=== PATIENT | male | born 1980 | race African-American/Black ===

== ENCOUNTER 2017-08-08 07:49 | Inpatient (IN) | payer OTHER ==
[~2017-08-08] VITALS: Ht 152.4 cm; Wt 92.0 kg
--- NOTE | ~2017-08-08 | D ---
[facility] [place] [address] DISCHARGE SUMMARY Name: HALIMAKELSY W Room #: 204-P [facility] IN M.R.#: [id number] Admission: 08/08/17 Attend Phys: Michael Garcia MD Discharge: 08/09/17 Date of : 84 Report #: [id number] THIS REPORT FOR: //name// CC: [facility] physician/PCP Michael Garcia DATE OF SERVICE: 08/09/2017 HISTORY OF PRESENT ILLNESS: The patient is a 37-year-old man who came to the hospital with alcohol intoxication, and impending alcohol withdrawal. Please refer to admission H and P for details. HOSPITALIZATION COURSE: The patient was hospitalized. He was initiated on alcohol withdrawal protocol. The patient was also found to have hypokalemia and hypomagnesemia, that was replaced. This morning, the patient feels much better. Tremors and anxiety have completely resolved. is well established. He has been hemodynamically stable. He will be discharged home. The patient is strongly advised to avoid taking alcohol. DISCHARGE DIAGNOSES: 1. Alcohol intoxication, resolved. 2. Mild alcohol withdrawal, resolved. 3. Hypomagnesemia and hypokalemia, replaced. 4. Transaminitis, mild, likely related to alcohol intake. DISCHARGE MEDICATIONS: Ativan p.r.n. and trazodone for insomnia. DISPOSITION: The patient is discharged home. FOLLOWUP PLAN: Follow up with the primary care physician in 1-2 weeks. <ELECTRONICALLY SIGNED> By: Michael Garcia MD 08/10/17 [id number] [id number] Michael Garcia MD /nt
[2017-08-08 07:54] VITALS: BP 134/76
[2017-08-08 08:39] LABS: HEMATOCRIT 41.2 % (42.0-52.0); HEMOGLOBIN 14.3 gm/dL (14.0-18.0); MCH 31.1 pg (26.0-34.0); MCHC 34.6 g/dL (28.0-37.0); MCV 89.8 fL (80.0-100.0); RBC 4.58 mil/uL (4.50-6.00); RDW 15.2 % (10.5-14.5); WBC 7.4 thou/uL (4.0-11.0)
[2017-08-08 08:49] LABS: CALCIUM 9.1 mg/dL (8.5-10.1); MAGNESIUM 1.6 mg/dL (1.8-2.4); POTASSIUM 3.4 mmol/L (3.5-5.1)
[2017-08-08 10:39] LABS: AMP/METHAMP Negative (Negative); BARBITURATES Negative (Negative); BENZODIAZEPINES Negative (Negative); COCAINE Negative (Negative); METHADONE Negative (Negative); OPIATES Negative (Negative); PCP Negative (Negative)
[2017-08-08 13:48] VITALS: BP 165/81
[2017-08-08 14:48] VITALS: BP 140/76
[2017-08-08] MEDS ORDERED: TRAZODONE HCL100 MG PO (16:54)
[2017-08-08 19:32] VITALS: BP 131/77
[2017-08-09 03:18] LABS: HEMOGLOBIN 12.6 gm/dL (14.0-18.0); MCH 31.3 pg (26.0-34.0); MCHC 34.2 g/dL (28.0-37.0); MCV 91.6 fL (80.0-100.0); RBC 4.04 mil/uL (4.50-6.00); RDW 15.3 % (10.5-14.5); WBC 5.9 thou/uL (4.0-11.0)
[2017-08-09 03:35] LABS: ALBUMIN 3.1 g/dL (3.4-5.0); CALCIUM 8.5 mg/dL (8.5-10.1); CREATININE 1.1 mg/dL (0.7-1.3); MAGNESIUM 1.6 mg/dL (1.8-2.4); POTASSIUM 3.2 mmol/L (3.5-5.1); TOTAL BILIRUBIN 4.7 mg/dL (<0.1-1.0)
[2017-08-09 03:48] LABS: TOTAL PROTEIN 7.5 g/dL (6.4-8.2)
[2017-08-09 04:45] VITALS: BP 126/82
[2017-08-09 08:00] VITALS: BP 127/80
[2017-08-09] MEDS ORDERED: TRAZODONE HCL100 MG PO (10:54)
[2017-08-09] MEDS ORDERED: ATIVAN0.5 MG PO (10:54)
[2017-08-09 11:14] VITALS: BP 131/81
[2017-08-09 12:44] VITALS: BP 131/81
[2017-08-09 13:13] VITALS: BP 131/81
== END 2017-08-09 13:05 | disposition home or self-care (01) | DRG 897 ==
LOC: ER 07:49 → EROBS 11:04 → 2N 14:04 → ENTRNSPT 08-09 12:56 → EDTRNSPTSTS 08-09 12:59 → 2N 08-09 13:05
PROVIDERS: Emergency Medicine; Nurse Practitioner
DX: F10.229 Alcohol dependence with intoxication, unspecified (principal); F41.9 Anxiety disorder, unspecified; F10.239 Alcohol dependence with withdrawal, unspecified; E83.42 Hypomagnesemia; E87.6 Hypokalemia; R74.0 Nonspecific elevation of levels of transaminase and lactic acid dehydrogenase [LDH]; D69.6 Thrombocytopenia, unspecified; Z88.0 Allergy status to penicillin; Z88.8 Allergy status to other drugs, medicaments and biological substances
CPT/HCPCS: 10081

== ENCOUNTER 2019-01-04 10:56 | Emergency (ER) | payer BC ==
[~2019-01-04] VITALS: Ht 180.3 cm; Wt 86.2 kg
[~2019-01-04 10:56] MED LIST: ATIVAN0.5 MG PO; TRAZODONE HCL100 MG PO
[2019-01-04 12:12] LABS: ABSOLUTE NEUTROPHILS 7.7 thou/uL (1.4-8.2); BASOPHILS 0.3 % (0.0-2.0); EOSINOPHILS 0.1 % (0.0-3.0); HEMATOCRIT 43.7 % (42.0-52.0); LYMPHOCYTES 8.7 % (24.0-44.0); MCH 30.8 pg (26.0-34.0); MCHC 34.3 g/dL (28.0-37.0); MCV 89.8 fL (80.0-100.0); MONOCYTES 6.1 % (1.0-8.0); PLATELET COUNT 128 thou/uL (150-400); POLYS 84.8 % (36.0-66.0); RBC 4.87 mil/uL (4.50-6.00); RDW 14.3 % (10.5-14.5)
[2019-01-04 12:23] LABS: CALCIUM 9.6 mg/dL (8.5-10.1); CREATININE 0.9 mg/dL (0.7-1.3); POTASSIUM 5.8 mmol/L (3.5-5.1)
[2019-01-04 12:28] LABS: ALBUMIN 4.3 g/dL (3.4-5.0); TOTAL BILIRUBIN 2.7 mg/dL (<0.1-1.0); TOTAL PROTEIN 9.5 g/dL (6.4-8.2)
[2019-01-04 13:05] LABS: URINE BILIRUBIN NEGATIVE (Negative); URINE BLOOD 2+ (Negative); URINE CLARITY CLEAR; URINE COLOR YELLOW; URINE GLUCOSE-RANDOM* NEGATIVE (Negative); URINE KETONES 1+ (Negative); URINE LEUKOCYTES-REFLEX NEGATIVE (Negative); URINE NITRITE-REFLEX NEGATIVE (Negative); URINE PROTEIN (DIPSTICK) 3+ (Negative); URINE SPECIFIC GRAVITY 1.025 (1.005-1.035)
[2019-01-04 13:17] LABS: BACTERIA-REFLEX None Seen /HPF (None Seen); CASTS None Seen /LPF (None Seen); CRYSTALS None Seen /LPF (None Seen); MUCUS >6 Heavy strn/LPF (None Seen); SQUAMOUS 0-3 Few /LPF (0-3); URINE RBC 3-10 Few /HPF (0-2); URINE WBC-REFLEX 6-15 Few /HPF (0-5)
[2019-01-04] MEDS ORDERED: BACTRIM DS TAB1 EACH PO (13:58)
[2019-01-04] MEDS ORDERED: ONDANSETRON HCL4 M2 PO (13:58)
[2019-01-04] MEDS ORDERED: PRILOSEC 20 MG20 MG PO (13:58)
[2019-01-04 14:24] VITALS: BP 117/63
--- NOTE | 2019-01-06 22:31 | EKG ---
[address] [address] ELECTROCARDIOGRAM REPORT Name: KELSY VARGHESE [id number] ������������������ Admission: 01/04/19 ������������������ Attend Phys: Discharge: 01/04/19 ������������������ Date of : 84 Report #: [id number] ����������������������������������������������������������������� [id number] THIS REPORT FOR: //name// [facility] ED Test Date: 2019-01-04 Test Time: 13:12:41 Pat Name: KELSY HALIMA Department: Room: Gender: M Curriculum And Assessment Coordinator: ALBERTO : 1980 Requested By: Citlaly Archer Order Number: [id number] MD: Cresencio Lake Measurements Intervals [place] Rate: 61 P: 64 CT: 205 QRS: 63 QRSD: 89 T: 47 QT: 430 QTc: 433 Interpretive Statements Sinus rhythm Borderline prolonged CT interval Probable left atrial enlargement Anteroseptal infarct, age indeterminate No previous ECG available for comparison Electronically Signed On 01-06-2019 22:31:15 CDT by Cresencio Lake [email or web address] ��������������������������������������������� <ELECTRONICALLY SIGNED> ���������������������������������������� By: Cresencio Lake MD ��������������������������������������������� 01/06/19 2231 D: 05/1311 11 Cresencio Lake MD /MANUEL
== END 2019-01-04 14:25 | disposition home or self-care (01) ==
LOC: ER 10:56
PROVIDERS: Physician Assistant
DX: N39.0 Urinary tract infection, site not specified (principal); Z88.0 Allergy status to penicillin; Z88.8 Allergy status to other drugs, medicaments and biological substances